=== PATIENT | male | born 1970 | race Caucasian/White ===

== ENCOUNTER 2016-12-19 06:21 | Emergency (ER) | payer OTHER ==
[~2016-12-19] VITALS: Ht 175.3 cm; Wt 79.4 kg
--- NOTE | ~2016-12-19 | EKG ---
[place] [address] [address] [employer] [place] [address] ELECTROCARDIOGRAM REPORT Name: MEAGAN LEONLEXI Alfaro [facility]: [facility] [id number] Admission: 12/19/16 Attend Phys: Discharge: Date of : 74 Report #: [id number] THIS REPORT FOR: //name// [facility] ED Test Date: 2016-12-19 Test Time: 07:48:32 Pat Name: KIRSTEN LEON Department: Room: Gender: Floor Attendant: : 1970 Requested By: Homero Naidu Order Number: [id number] MD: Gus Boyd Measurements Intervals [place] Rate: 94 P: 60 MD: 171 QRS: 46 QRSD: 96 T: 44 QT: 363 QTc: 454 Interpretive Statements Sinus rhythm No significant abnormality Compared to ECG 05/20/2016 18:14:27 Sinus tachycardia no longer present Electronically Signed On 12-19-2016 8:15:04 CDT by Gus Boyd [email or web address] <ELECTRONICALLY SIGNED> By: Gus Boyd MD, [facility] 12/19/16 0815 0748 0748 Gus Boyd MD, FACC /EPI
[~2016-12-19 06:21] MED LIST: ALBUTEROL2.5 MG/0.5; ATIVAN1 MG PO; AUGMENTIN 875875 MG PO; B-100 COMPLEX1 EACH PO; CALCIUM 600 +1 EAC1 PO; CLONAZEPAM 0.50.5 M1 PO; DAILY MULTIPLE1 EACH PO; PRILOSEC20 MG PO; ROBAXIN 750 MG750 M1 PO; VENTOLIN HFA 1818 GM INH; VITAMIN B-1100 M1 PO
[2016-12-19] MEDS ORDERED: GEMFIBROZIL 60600 MG PO (06:28)
[2016-12-19 07:24] LABS: BASOPHILS 0.7 % (0.0-2.0); EOSINOPHILS 0.8 % (0.0-3.0); HEMATOCRIT 39.9 % (42.0-52.0); HEMOGLOBIN 14.1 gm/dL (14.0-18.0); LYMPHOCYTES 46.2 % (24.0-44.0); MCH 30.5 pg (26.0-34.0); MCHC 35.3 g/dL (28.0-37.0); MCV 86.2 fL (80.0-100.0); PLATELET COUNT 251 thou/uL (150-400); POLYS 43.3 % (36.0-66.0); RBC 4.63 mil/uL (4.50-6.00); RDW 14.1 % (10.5-14.5); WBC 4.5 thou/uL (4.0-11.0)
[2016-12-19 07:25] LABS: MANUAL DIFF NO
[2016-12-19 07:30] LABS: ANION GAP 17 mmol/L (7-16); BUN 17 mg/dL (7-18); CALCIUM 9.1 mg/dL (8.5-10.1); CHLORIDE 101 mmol/L (98-107); CO2 22 mmol/L (21-32); CREATININE 1.1 mg/dL (0.7-1.3); GLUCOSE 198 mg/dL (74-106); POTASSIUM 3.3 mmol/L (3.5-5.1); SODIUM 140 mmol/L (136-145)
[2016-12-19 07:38] LABS: ALBUMIN 4.3 g/dL (3.4-5.0); ALKALINE PHOSPHATASE 77 U/L (46-116); SALICYLATE 2.7 mg/dL (2.8-20.0); SGOT 14 U/L (15-37); SGPT 16 U/L (30-65); TOTAL BILIRUBIN 0.6 mg/dL (<0.1-1.0); TOTAL PROTEIN 7.9 g/dL (6.4-8.2); TROPONIN-I < 0.04 ng/mL (<0.04-0.07)
[2016-12-19 07:39] LABS: ACETAMINOPHEN < 2 ug/mL (10-30)
[2016-12-19] MEDS ORDERED: ATIVAN1 MG PO (08:24)
== END 2016-12-19 09:59 | disposition home or self-care (01) ==
LOC: ER 06:21
PROVIDERS: Emergency Medicine
DX: F10.239 Alcohol dependence with withdrawal, unspecified (principal); J45.909 Unspecified asthma, uncomplicated; F41.9 Anxiety disorder, unspecified; F17.210 Nicotine dependence, cigarettes, uncomplicated; Y90.3 Blood alcohol level of 60-79 mg/100 ml

== ENCOUNTER 2017-04-03 03:03 | Emergency (ER) | payer OTHER ==
[~2017-04-03] VITALS: Ht 172.7 cm; Wt 81.7 kg
--- NOTE | ~2017-04-03 | EKG ---
[place] [address] [facility] [place] [address] ELECTROCARDIOGRAM REPORT Name: KIRSTEN LEON [facility]: [facility]ENTER[facility] [id number] Admission: 04/03/17 Attend Phys: Discharge: 04/03/17 Date of : 74 Report #: [id number] THIS REPORT FOR: //name// [facility] ED Test Date: 2017-04-03 Test Time: 03:20:31 Pat Name: KIRSTEN LEON Department: Room: Gender: Prevention Coordinator: robert cazares : 1970 Requested By: Nayla Li Order Number: [id number] MD: Gus Boyd Measurements Intervals [place] Rate: 113 P: 73 ID: 160 QRS: 59 QRSD: 92 T: 45 QT: 321 QTc: 441 Interpretive Statements Sinus tachycardia Otherwise normal tracing Compared to ECG 12/19/2016 07:48:32 No significant change was found Electronically Signed On 04-03-2017 8:33:40 ACCESS RN by Gus Boyd [email or web address] <ELECTRONICALLY SIGNED> By: Gus Boyd MD, [facility] 04/03/17 0833 0320 0320 Gus Boyd MD, FACC /EPI
[~2017-04-03 03:03] MED LIST changes: +GEMFIBROZIL 60600 MG PO
[2017-04-03 03:40] LABS: ABSOLUTE NEUTROPHILS 3.8 thou/uL (1.4-8.2); BASOPHILS 0.6 % (0.0-2.0); EOSINOPHILS 1.5 % (0.0-3.0); HEMATOCRIT 44.7 % (42.0-52.0); HEMOGLOBIN 15.8 gm/dL (14.0-18.0); LYMPHOCYTES 46.9 % (24.0-44.0); MCH 30.4 pg (26.0-34.0); MCHC 35.3 g/dL (28.0-37.0); MCV 86.1 fL (80.0-100.0); MONOCYTES 7.9 % (1.0-8.0); PLATELET COUNT 281 thou/uL (150-400); POLYS 43.1 % (36.0-66.0); RBC 5.19 mil/uL (4.50-6.00); RDW 13.5 % (10.5-14.5); WBC 8.8 thou/uL (4.0-11.0)
[2017-04-03 03:49] LABS: CALCIUM 9.4 mg/dL (8.5-10.1)
[2017-04-03 03:54] LABS: ALBUMIN 4.3 g/dL (3.4-5.0); DIRECT BILIRUBIN 0.1 mg/dL (<0.1-0.3); TOTAL BILIRUBIN 0.6 mg/dL (<0.1-1.0)
[2017-04-03] MEDS ORDERED: NEURONTIN600 MG PO (03:56)
[2017-04-03] MEDS ORDERED: CHLORDIAZEPOXID10 MG PO (04:00)
[2017-04-03 05:10] VITALS: BP 133/64
== END 2017-04-03 05:10 | disposition home or self-care (01) ==
LOC: ER 03:03
PROVIDERS: Emergency Medicine
DX: F10.239 Alcohol dependence with withdrawal, unspecified (principal); J45.909 Unspecified asthma, uncomplicated; F41.9 Anxiety disorder, unspecified; K85.90 Acute pancreatitis without necrosis or infection, unspecified; E75.5 Other lipid storage disorders; F17.210 Nicotine dependence, cigarettes, uncomplicated